=== PATIENT | female | born 1960 | race Caucasian/White ===

== ENCOUNTER → 2017-09-14 | Outpatient (CLI) | payer BC, SELFPAY | PROVIDERS: Visit Provider Internal Medicine Adolescent Medicine | DX: E78.5 Hyperlipidemia, unspecified (principal); E55.9 Vitamin D deficiency, unspecified; E03.9 Hypothyroidism, unspecified | CPT/HCPCS: 36415; 80053; 80061; 82306; 84443; 85025 ==

== ENCOUNTER → 2018-02-25 17:12 | Outpatient (CLI) | payer BC, SELFPAY ==
--- NOTE | 2018-02-25 17:28 | XR_ITS ---
XR ankle wt bearing RT min 3V HISTORY: ITS.REASON: pain ORDERING PHYSICIAN: Zakiya Duke DPM PATIENT AGE: 57 years Comparison: None FINDINGS: No fracture or dislocation. No lytic or blastic change. There is normal mineralization.. The joint spaces are well-preserved. No significant degenerative/arthritic changes. No erosive changes evident. IMPRESSION: Negative ankle, no acute finding
--- NOTE | 2018-02-25 17:28 | XR_ITS ---
XR ankle wt bearing LT min 3V HISTORY: ITS.REASON: pain ORDERING PHYSICIAN: Zakyia Duke DPM PATIENT AGE: 57 years Comparison: None FINDINGS: There is cortical thickening of the distal shaft of the tibia with mild anterior angulation of the distal tibia consistent with an old fracture. There are mild hypertrophic changes at the talus at the tip of the medial malleolus. No lytic or blastic change. No acute fracture. IMPRESSION: Old distal tibia fracture with mild degenerative change of the ankle
--- NOTE | 2018-02-25 17:28 | XR_ITS ---
XR foot wt bearing LT 3V HISTORY: ITS.REASON: pain ORDERING PHYSICIAN: Zakiya Duke DPM PATIENT AGE: 57 years COMPARISON: None FINDINGS: No fracture or dislocation. No lytic or blastic change. There is normal mineralization.. The joint spaces are well-preserved. No significant degenerative/arthritic changes. No erosive changes evident. Small Achilles enthesophyte nonspecific IMPRESSION: Negative left foot
--- NOTE | 2018-02-25 17:28 | XR_ITS ---
XR foot wt bearing RT 3V HISTORY: ITS.REASON: Pain ORDERING PHYSICIAN: Zakiya Duke DPM PATIENT AGE: 57 years COMPARISON: None FINDINGS: No fracture or dislocation. No lytic or blastic change. There is normal mineralization.. The joint spaces are well-preserved. No significant degenerative/arthritic changes. No erosive changes evident. There is a small calcaneal spur and small enthesophyte at the Achilles insertion IMPRESSION: Small calcaneal spur small Achilles enthesophyte otherwise negative right foot
== END ==
PROVIDERS: PCP Internal Medicine Adolescent Medicine; Visit Provider Podiatrist
DX: M79.671 Pain in right foot (principal); M79.672 Pain in left foot
CPT/HCPCS: 73610; 73630

== ENCOUNTER → 2018-09-03 13:31 | Outpatient (CLI) | payer BC, SELFPAY ==
[2018-09-03 13:55] LABS: Blood Urea Nitrogen 18 mg/dL (7-18); Creatinine,Serum 1.03 mg/dL (0.55-1.02); Estimated Glomerular Filt Rate 55 ml/min (>60); GFR (African American) 66 ML/MIN (>60)
--- NOTE | 2018-09-03 14:18 | MR_ITS ---
MR ankle LT wo/w con CLINICAL INDICATION: Left ankle pain posteriorly especially when walking, Achilles tendinitis ITS.REASON: achilles tendonitis, surgical planning ORDERING PHYSICIAN: Zakiya Duke DPM PATIENT AGE: 58 years Comparison: 02/25/2018 TECHNIQUE: Multiplanar multiecho sequences are performed without and with contrast FINDINGS: The Achilles tendon is slightly thickened distally with slight increased T2 signal in the distal aspect of the tendon. There is increased T1 and T2 signal distally consistent with tendinopathy/tendinosis. A focal tear is not identified. Hyperostosis is present involving the posterior superior aspect of the calcaneus consistent with a high: Deformity. There is a small amount of fluid along the distal aspect of the Achilles tendon at its junction with the superior aspect of the calcaneus. There is also small amount of fluid posterior at the tibiotalar junction. There is also small amount of bone marrow edema within the posterior aspect of the calcaneus at the Achilles insertion Anterior posterior tibiofibular ligaments are unremarkable. The anterior talofibular ligament is somewhat smaller than expected and may be due to old injury. The extensor tendons and flexor tendons have an unremarkable appearance. No bone marrow edema evident within the tarsal bones of the ankle. The talar dome is unremarkable. Deltoid ligament has an unremarkable appearance. IMPRESSION: Achilles tendinopathy/tendinosis along with a Meek deformity with a small amount fluid within Kager's fat pad consistent with retrocalcaneal bursitis. Small amount of bone marrow edema within the posterior aspect of the calcaneus. No definite Achilles tendon tear. No other significant anomalies.
== END ==
PROVIDERS: Visit Provider Podiatrist
DX: M76.62 Achilles tendinitis, left leg (principal); M92.61 Juvenile osteochondrosis of tarsus, right ankle; M92.62 Juvenile osteochondrosis of tarsus, left ankle
CPT/HCPCS: 36415; 73223; 73723; 82565; 84520; A9576

== ENCOUNTER → 2018-09-19 16:00 | Outpatient (CLI) | payer BC, SELFPAY ==
--- NOTE | 2018-09-19 16:14 | XR_ITS ---
XR chest 2V HISTORY: ITS.REASON: HTN,COPD ORDERING PHYSICIAN: Zakiya Duke DPM PATIENT AGE: 58 years COMPARISON: PA and lateral chest 07/28/2015 FINDINGS: The lung hua are well expanded and appear clear of infiltrate. There is mild generalized cardio megaly and there has been slight interval increase in cardiac size since the previous chest film in 2015. There are calcified left hilar nodes. There is no pleural fluid. IMPRESSION: Mild generalized cardio megaly, no acute chest pathology noted
[2018-09-19 16:47] LABS: Basophils % 0.3 % (0.1-2.0); Eosinophils # 0.4 K/mm3 (0.0-0.4); Hemoglobin 12.1 g/dL (12.2-16.2); Lymphocytes # 1.2 K/mm3 (0.7-4.5); Lymphocytes % 13.2 % (10-50); Mean Corpuscular HGB Conc 31.9 g/dL (31.8-35.4); Mean Corpuscular Hemoglobin 25.8 pg (27.0-31.2); Mean Corpuscular Volume 80.9 fl (81-99); Mean Platelet Volume 9.2 fl (7.4-10.4); Monocytes # 0.3 K/mm3 (0.1-1.0); Monocytes % 3.8 % (1.7-9.3); Neutrophils % 78.7 % (37.0-80.0); Platelet Count 192 K/mm3 (142-424); Red Cell Distribution Width 14.7 % (11.5-17.5); White Blood Count 8.9 K/mm3 (4.8-10.8)
[2018-09-19 17:32] LABS: Alanine Aminotransferase 30 U/L (12-78); Albumin Level 4.1 gm/dL (3.4-5.0); Albumin/Globulin Ratio 1.5 (1.1-1.8); Alkaline Phosphatase 84 U/L (46-116); Anion Gap 13.5 mEq/L (5-15); Aspartate Amino Transferase 15 U/L (15-37); Bilirubin,Total 0.3 mg/dL (0.2-1.0); Blood Urea Nitrogen 19 mg/dL (7-18); Calcium 9.4 mg/dL (8.5-10.1); Carbon Dioxide 29 mmol/L (21.0-32.0); Chloride 104 mmol/L (98-107); Creatinine,Serum 0.83 mg/dL (0.55-1.02); Estimated Glomerular Filt Rate 70 ml/min (>60); GFR (African American) 85 ML/MIN (>60); Globulin 2.7 gm/dl (1.3-3.2); Glucose 88 mg/dL (74-106); Potassium 4.5 mmoL/L (3.5-5.1); Sodium 142 mmol/L (136-145); Total Protein,Serum 6.8 gm/dL (6.4-8.2)
[2018-09-21 10:57] LABS: Vitamin D 25 Hydroxy 43.7 ng/mL (30.0-100.0)
== END ==
PROVIDERS: Visit Provider Podiatrist
DX: Z01.818 Encounter for other preprocedural examination (principal); M92.61 Juvenile osteochondrosis of tarsus, right ankle; M92.62 Juvenile osteochondrosis of tarsus, left ankle; M76.62 Achilles tendinitis, left leg; M76.61 Achilles tendinitis, right leg
CPT/HCPCS: 36415; 71046; 80053; 82652; 85025; 93005

== ENCOUNTER → 2018-10-24 15:43 | Outpatient (CLI) | payer BC, SELFPAY ==
--- NOTE | 2018-10-24 15:48 | XR_ITS ---
XR foot wt bearing LT 3V HISTORY: Follow-up surgery ITS.REASON: post-op ORDERING PHYSICIAN: Zakiya Duke DPM PATIENT AGE: 58 years COMPARISON: 10/11/2018 FINDINGS: Posterior splint remains in place. Status post osteotomy of the calcaneus. No bony erosive process. No fracture or dislocation. IMPRESSION: No change status post calcaneal osteotomy
== END ==
PROVIDERS: PCP Internal Medicine Adolescent Medicine; Visit Provider Podiatrist
DX: Z98.890 Other specified postprocedural states (principal)
CPT/HCPCS: 73630

== ENCOUNTER 2018-11-25 13:47 | Outpatient (RCR) | payer BC, SELFPAY ==
--- NOTE | 2018-11-25 14:55 | HMH.PTOPEV ---
PT Outpatient Evaluation Rehab PT Outpatient Evaluation Start: 11/25/18 13:54 Freq: Status: Active Protocol: Document 11/25/18 14:36 PHORALANA (Rec: 11/25/18 14:51 PHORNE [id number]) Electronically Signed By Harry Valero, PT 11/25/18 14:36 Outpatient Therapy Subjective History Subjective History Pt is a 58 yowf s/p left Giovanni's tendon and calcaneous surgery on 10/11/18. Pt reports staying in a boot since then and reports her WB status as partial WB. Pt states pain is 0/10 now and 4/ 10 at worst along the incision . Pt reports not moving foot since surgery. Pt reports the heel does not fit down into the boot. Pt ambulates with knee scooter. Pt reports having COPD, HTN, and denies any other comorbidities. Chief Complaint Pain Stiff Symptom Type Ache Sharp Symptoms Relieved By Rest/Positioning Symptoms Aggravated By Sitting Standing Physical Activity Twisting Walking Prior Functional Limitations Standing Sitting Squatting Recreation Activity Walking Stairs Balance Current Functional Limitations Housework Standing Sitting Squatting Recreation Activity Walking Stairs Balance Symptom Description Intermittent Level of pain today (0-10) 0 Pain scale - at its best (0-10) 0 Pain scale - at its worst (0-10) 4 Ankle/Foot Eval Palpation Tenderness left Ankle/Foot Palpation Findings Tenderness Ankle/Foot Palpation Overall Comment lateral malleolus and incision ATF TTP positive PTF TTP negative CF TTP negative Deltoid ligament TTP negative ROM Ankle/Foot Dorsiflexion w/Knee Flexed -10 Active Range of Motion (degrees) Ankle/Foot Plantar Flexion Active Range 30 of Motion (degrees)
== END 2018-11-25 13:55 | disposition home or self-care (01) ==
LOC: PT 13:47
PROVIDERS: Visit Provider Podiatrist
DX: Z98.890 Other specified postprocedural states (principal)
CPT/HCPCS: 97163

== ENCOUNTER → 2018-12-09 12:01 | Outpatient (CLI) | payer BC, SELFPAY ==
[2018-12-09 13:07] LABS: Basophils % 0.5 % (0.1-2.0); Eosinophils # 0.4 K/mm3 (0.0-0.4); Eosinophils % 5.1 % (0.1-12.0); Hematocrit 36.9 % (37.0-47.0); Hemoglobin 12.2 g/dL (12.2-16.2); Lymphocytes # 1.3 K/mm3 (0.7-4.5); Lymphocytes % 18.4 % (10-50); Mean Corpuscular Hemoglobin 27.3 pg (27.0-31.2); Mean Corpuscular Volume 82.5 fl (81-99); Mean Platelet Volume 10.1 fl (7.4-10.4); Monocytes # 0.3 K/mm3 (0.1-1.0); Monocytes % 3.6 % (1.7-9.3); Neutrophils # 5.2 K/mm3 (1.8-7.8); Neutrophils % 72.4 % (37.0-80.0); Platelet Count 165 K/mm3 (142-424); Red Blood Count 4.47 M/mm3 (4.20-5.40); Red Cell Distribution Width 15.1 % (11.5-17.5); White Blood Count 7.1 K/mm3 (4.8-10.8)
[2018-12-09 13:10] LABS: Alanine Aminotransferase 22 U/L (12-78); Albumin Level 4.1 gm/dL (3.4-5.0); Albumin/Globulin Ratio 1.5 (1.1-1.8); Alkaline Phosphatase 70 U/L (46-116); Anion Gap 14.8 mEq/L (5-15); Aspartate Amino Transferase 12 U/L (15-37); Bilirubin,Total 0.2 mg/dL (0.2-1.0); Blood Urea Nitrogen 28 mg/dL (7-18); Calcium 9.2 mg/dL (8.5-10.1); Carbon Dioxide 26 mmol/L (21.0-32.0); Chloride 108 mmol/L (98-107); Chol/HDL Ratio 3.6 (1-3.5); Cholesterol 134 mg/dL (140-200); Estimated Glomerular Filt Rate 42 ml/min (>60); GFR (African American) 51 ML/MIN (>60); Globulin 2.7 gm/dl (1.3-3.2); Glucose 92 mg/dL (74-106); HDL Cholesterol 37 mg/dL (29-89); LDL Cholesterol 75 mg/dL (0-130); Potassium 4.8 mmoL/L (3.5-5.1); Sodium 144 mmol/L (136-145); Thyroid Stimulating Hormone 0.41 uIU/ml (0.358-3.740); Total Protein,Serum 6.8 gm/dL (6.4-8.2); Triglycerides 109 mg/dL (30-200); VLDL Cholesterol 22 mg/dL (0-40)
== END ==
PROVIDERS: Visit Provider Internal Medicine Adolescent Medicine
DX: E78.5 Hyperlipidemia, unspecified (principal); E03.9 Hypothyroidism, unspecified; I10 Essential (primary) hypertension
CPT/HCPCS: 36415; 80053; 80061; 84443; 85025

== ENCOUNTER 2019-02-25 15:30 | Outpatient (RCR) | payer BC, SELFPAY ==
--- NOTE | 2019-01-01 08:47 | HMH.PTOPEV ---
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 Pt reports incision opened up in early November, and fully closed ~1 week ago, therefore normal skilled P.T. was put on hold. Pt reports 25-50% PWB w /L cam walker and RW, next followup 01/23/19. Pt reports some lingering L heel pain w/ wt. bearing, swelling, and weakness. Chief Complaint Pain Stiff Paresthesia Weakness Symptom Type Ache Throb Dull Symptoms Relieved By Rest/Positioning Ice Symptoms Aggravated By Standing Walking Prior Functional Limitations Standing Walking Current Functional Limitations Housework Standing Walking Stairs Symptom Description Constant but Variable Level of pain today (0-10) 3 Pain scale - at its best (0-10) 2 Pain scale - at its worst (0-10) 6 Ankle/Foot Eval Palpation Tenderness left Ankle/Foot Palpation Findings Tenderness Ankle/Foot Palpation Overall Comment 2/4 ACHILLES INSERTION, SX. INCISION ROM Ankle/Foot Dorsiflexion w/Knee Extended 0-10 Active Range Motion (degrees) Ankle/Foot Plantar Flexion Active Range 0-35 of Motion (degrees) Ankle/Foot Eversion Active Range of 0-10 Motion (degrees) Ankle/Foot Inversion Active Range of 0-28 Motion (degrees) Ankle/Foot ROM Limitations Soft Tissue Tightness MMT Ankle Dorsiflexion Strength Grade 4 Good Ankle Plantarflexion Strength Grade 4 Good Foot Eversion Strength Grade 4 Good Foot Inversion Strength Grade 4 Good Outpatient Therapy Assessment Impairments Problems/Impairmments Palpation Tenderness Impaired Range of Motion Impaired Strength
--- NOTE | 2019-02-25 16:38 | HMH.RHREAS ---
Rehab Reassessment Rehab OP Re-assessment Start: 02/25/19 15:35 Freq: Status: Active Protocol: Document 02/25/19 15:43 [email or web address] (Rec: 02/25/19 15:49 ORAMARIBELJIN [id number]) Electronically Signed By Josh Streeter, PT 02/25/19 15:43 Rehab Re-assessment Subjective Subjective PT REPORTS 0-2/10 L ANKLE PAIN ON VAS, AND FEELS 80-85% BETTER OVERALL SINCE I EVAL Objective Objective Notes AROM: R ANKLE DF 0-15, PF 0-35 , INV 0-40, EVR 0-10 MMT: R ANKLE DF 4+/5, PF 4+/5, INV 4+/5, EVR 4+/5 TTP: ACHILLES 1/4, ATF 1/4 FIG 8: L 55 CM, CIRCUM. TALOCRURAL 26CM Assessment Progress Assessment Progressing as Expected Assessment Notes PT W/SIGNIFICANT IMPROVEMENTS W/ROM, STRENGTH, TTP, AND SWELLING Patient goals met STG'S 05/01 LTG'S 02/01 Goals Not Met LTG'S 03/04 Plan Plan PT TO CONT. W/SKILLED P.T. TO MAKE FURTHER IMPROVEMENTS W/ ROM, STRENGTH, AND TTP TO ALLOW FOR OPTIMAL FUNCTION Frequency of Therapy 1-2X/WK Duration of therapy 2-4 WKS Time and Billing Re-Eval Time 15 Re-Eval Billing Units 1 PHYSICIAN CERTIFICATION: I certify the specified therapy services for Prabha Ocasio are required, authorized, and reviewed every 30 days.
== END 2019-02-25 15:35 | disposition home or self-care (01) ==
LOC: PT 15:30
PROVIDERS: Visit Provider Podiatrist
DX: Z98.890 Other specified postprocedural states (principal); M79.672 Pain in left foot
CPT/HCPCS: 97010; 97014; 97016; 97035; 97110; 97112; 97140; 97163; 97164; G0283

== ENCOUNTER → 2019-07-03 10:59 | Outpatient (CLI) | payer BC, SELFPAY ==
[2019-07-03 11:20] LABS: Blood Urea Nitrogen 14 mg/dL (7-18); Creatinine,Serum 0.81 mg/dL (0.55-1.02); Estimated Glomerular Filt Rate 72 ml/min (>60); GFR (African American) 87 ML/MIN (>60)
--- NOTE | 2019-07-03 13:41 | MR_ITS ---
PROCEDURE: MR ANKLE RT WO/W CON CLINICAL INDICATION: achilles tendon pain Post calcaneal bursitis, right Achilles tendinitis/bursitis/Meek deformity COMPARISON: [id number] XR foot wt bearing RT 3V from 02/25/2018 [id number] XR ankle wt bearing RT min 3V from 02/25/2018 [id number] MR ankle LT wo/w con from 09/03/2018 TECHNIQUE: Routine multiplanar multi echo sequences are performed without and with gadolinium enhancement. FINDINGS: There appears to be some discontinuity of the anterior tibiofibular ligament medially on the STIR images but not on the axial images possibly related to slice orientation artifact. Posterior tibiofibular, anterior talofibular and posterior talofibular ligaments and deltoid ligament has an unremarkable appearance. The peroneal, posterior tibial, flexor tendons, and extensor tendons have an unremarkable appearance.. There is mild amount of edema within the soft tissues about the ankle both medially and laterally. No fracture or dislocation. The talar dome has an unremarkable appearance. The Achilles tendon is thickened distally. A complete tear is not identified. There is does appear to be some discontinuity of the distal fibers medially. This however could be due to focal inflammation instead of a tear. There is a small Meek deformity. Increased T2 signal is present anterior to the Achilles tendon and just superior to the calcaneus. Small amount of fluid is present in the posterior talocalcaneal recess. There is a small amount of bone marrow edema within the calcaneus at the insertion at of the Achilles tendon. IMPRESSION: Retrocalcaneal bursitis with Achilles tendinitis. There is a Meek deformity and a small amount of fluid anterior to the insertion of the calcaneus. There is some discontinuity of low signal intensity along the medial fibers of the Achilles tendon at the insertion on the calcaneus. This could be due to either severe inflammatory change or a minimal tear. A full-thickness tear of the Achilles tendon is not present. Dictated by: Winston Reynolds MD 07/05/2019 07:03 Electronically signed by Winston Reynolds MD in [place] 07/09/2019 06:34
== END ==
PROVIDERS: PCP Internal Medicine Adolescent Medicine; Visit Provider Podiatrist
DX: M76.61 Achilles tendinitis, right leg (principal); M77.50 Other enthesopathy of unspecified foot and ankle; M92.61 Juvenile osteochondrosis of tarsus, right ankle
CPT/HCPCS: 36415; 73723; 82565; 84520; A9576

== ENCOUNTER → 2019-08-05 15:54 | Outpatient (POV) | payer BC, SELFPAY | PROVIDERS: Visit Provider Dermatology | DX: Z00.00 Encounter for general adult medical examination without abnormal findings (principal) ==

== ENCOUNTER → 2019-08-11 16:50 | Outpatient (CLI) | payer BC, SELFPAY ==
--- NOTE | 2019-08-11 | XR_ITS ---
PROCEDURE: XR CHEST 2V CLINICAL HISTORY: Former smoker, hypertension, COPD COMPARISON: CXR CHEST(2 VIEWS-NOT PORTABLE) from 07/28/[address] [facility] [address] CHEST W/O CONTRAST from 01/21/2016 CXR2V XR chest 2V from 09/19/2018 FINDINGS: The cardiomediastinal silhouette and pulmonary vascularity are within normal limits. Changes of COPD. Calcified granuloma is present in the left upper lobe with scarring in the left perihilar region. No acute bony abnormalities. IMPRESSION: COPD with scarring, no change with no acute finding Dictated by: Winston Reynolds MD 08/11/2019 18:17 Electronically signed by Winston Reynolds MD in [place] 08/12/2019 11:31
[2019-08-11 17:20] LABS: Basophils % 0.5 % (0.1-2.0); Eosinophils # 0.4 K/mm3 (0.0-0.4); Eosinophils % 4.2 % (0.1-12.0); Hematocrit 38.4 % (37.0-47.0); Hemoglobin 12.3 g/dL (12.2-16.2); Lymphocytes # 1.4 K/mm3 (0.7-4.5); Lymphocytes % 15.2 % (10-50); Mean Corpuscular HGB Conc 32.1 g/dL (31.8-35.4); Mean Corpuscular Hemoglobin 26.1 pg (27.0-31.2); Mean Corpuscular Volume 81.2 fl (81-99); Mean Platelet Volume 10.3 fl (7.4-10.4); Monocytes # 0.4 K/mm3 (0.1-1.0); Monocytes % 4.6 % (1.7-9.3); Neutrophils # 6.9 K/mm3 (1.8-7.8); Neutrophils % 75.5 % (37.0-80.0); Platelet Count 191 K/mm3 (142-424); Red Blood Count 4.73 M/mm3 (4.20-5.40); Red Cell Distribution Width 14.8 % (11.5-17.5); White Blood Count 9.1 K/mm3 (4.8-10.8)
--- NOTE | 2019-08-11 17:30 | ECG_ITS ---
APPROVED REPORT Exam: Resting ECG HR:69 bpm ECG Measurements Heart Rate 69 AXES SC 146 P 51 QRSd 100 QRS 10 QT 426 T 42 QTc 456 <Conclusion> Normal sinus rhythm Possible Left atrial enlargement Incomplete RBBB Borderline ECG Electronically signed by : Shahram Barrios, 08/12/2019 09:21:15
[2019-08-11 19:20] LABS: Anion Gap 11.7 mEq/L (5-15); Blood Urea Nitrogen 17 mg/dL (7-18); Carbon Dioxide 30 mmol/L (21.0-32.0); Chloride 105 mmol/L (98-107); Creatinine,Serum 0.79 mg/dL (0.55-1.02); Estimated Glomerular Filt Rate 74 ml/min (>60); GFR (African American) 90 ML/MIN (>60); Glucose 82 mg/dL (74-106); Potassium 3.7 mmoL/L (3.5-5.1); Sodium 143 mmol/L (136-145)
[2019-08-13 10:23] LABS: Vitamin D 25 Hydroxy 48.3 ng/mL (30.0-100.0)
== END ==
PROVIDERS: PCP Internal Medicine Adolescent Medicine; Visit Provider Podiatrist
DX: Z01.818 Encounter for other preprocedural examination (principal); M77.51 Other enthesopathy of right foot and ankle
CPT/HCPCS: 36415; 71046; 80048; 82652; 85025; 93005

== ENCOUNTER → 2019-10-21 09:21 | Outpatient (CLI) | payer BC, SELFPAY ==
--- NOTE | 2019-10-21 09:25 | XR_ITS ---
PROCEDURE: XR CALCANEUS RT MIN 2V CLINICAL INDICATION: post-op COMPARISON: MR ANKLE RT WO/W CON from 07/03/2019 XR FOOT RT MIN 3V from 08/29/2019 XR CALCANEUS RT MIN 2V from 08/29/2019 XR FOOT WT BEARING RT 3V from 10/21/2019 FINDINGS: Status post osteotomy of the posterior superior aspect of the calcaneus as previously described not significantly changed. Remains good alignment. There is some minimal soft tissue calcification posterior to the talus in the pre Achilles region. Foot has an otherwise unremarkable appearance. The joint spaces are well-preserved. No significant degenerative/arthritic changes. No erosive changes evident. Other findings:None. IMPRESSION: Stable postsurgical changes of the calcaneus Dictated by: Winston Reynolds MD 10/21/2019 15:00 Electronically signed by Winston Reynolds MD in [place] 10/21/2019 15:00
== END ==
PROVIDERS: PCP Internal Medicine Adolescent Medicine; Visit Provider Nurse Practitioner
DX: Z98.890 Other specified postprocedural states (principal); M76.61 Achilles tendinitis, right leg; M77.51 Other enthesopathy of right foot and ankle; R60.9 Edema, unspecified
CPT/HCPCS: 73630; 73650

== ENCOUNTER 2019-10-28 11:14 | Outpatient (RCR) | payer BC, SELFPAY ==
--- NOTE | 2019-10-28 11:44 | HMH.PTOPEV ---
PT Outpatient Evaluation Rehab PT Outpatient Evaluation Start: 10/28/19 11:36 Freq: Status: Active Protocol: Document 10/28/19 11:36 JONO (Rec: 10/28/19 11:44 JONO [id number]) Electronically Signed By Josh Streeter, PT 10/28/19 11:36 Outpatient Therapy Subjective History Subjective History Pt presents s/p R Meek's deformity sx. on 08/29/19. Pt reports sx. incision has ' opened up, and I go back to the doc for that, otherwise it feels better than the first one'. Pt reports previous procedure on L on . Pt reports some R foot swelling, stiffness, and pain, 'but not bad, sorta what I expected'. Chief Complaint Pain,Stiff,Swelling,Weakness Symptom Type Ache,Dull Symptoms Relieved By Rest/Positioning,Ice Symptoms Aggravated By Standing,Walking Prior Functional Limitations Standing,Walking Current Functional Limitations Standing,Walking,Stairs Symptom Description Constant but Variable Level of pain today (0-10) 3 Pain scale - at its best (0-10) 2 Pain scale - at its worst (0-10) 6 Ankle/Foot Eval Gait Observation General Gait Pattern Observation Antalgic Gait Assistive Device Ambulation Assistive Device Rolling Walker Palpation Tenderness right Ankle/Foot Palpation Findings Tenderness Ankle/Foot Palpation Overall Comment 1-2/4 achilles insertion ROM Ankle/Foot Dorsiflexion w/Knee Extended 0-15 Active Range Motion (degrees) Ankle/Foot Plantar Flexion Active Range 0-35 of Motion (degrees) Ankle/Foot Eversion Active Range of 0-22 Motion (degrees) Ankle/Foot Inversion Active Range of 0-28 Motion (degrees) Ankle/Foot ROM Limitations Soft Tissue Tightness MMT Ankle Dorsiflexion Strength Grade 4 Good Ankle Plantarflexion Strength Grade 4 Good Foot Eversion Strength Grade 4- Good- Foot Inversion Strength Grade 4- Good- Outpatient Therapy Assessment Impairments Problems/Impairmments Palpation Tenderness,Impaired Range of Motion,Impaired Strength,Impaired Gait Pattern ,Impaired Walking,Impaired Standing,Impaired Stair Climbing,Impaired Work Activities,Subjective C/O Pain ,Impaired Self Care/Self Management Prognosis Rehab Potential [facility]
== END 2019-10-28 11:20 | disposition home or self-care (01) ==
LOC: PT 11:14
PROVIDERS: PCP Internal Medicine Adolescent Medicine; Visit Provider Podiatrist
DX: Z98.890 Other specified postprocedural states (principal); M77.50 Other enthesopathy of unspecified foot and ankle; M76.61 Achilles tendinitis, right leg
CPT/HCPCS: 97163

== ENCOUNTER → 2020-02-23 09:51 | Outpatient (CLI) | payer BC, SELFPAY ==
[2020-02-23 10:49] LABS: Basophils % 0.5 % (0.1-2.0); Eosinophils # 0.3 K/mm3 (0.0-0.4); Hematocrit 34.5 % (37.0-47.0); Hemoglobin 11.4 g/dL (12.2-16.2); Lymphocytes # 0.9 K/mm3 (0.7-4.5); Lymphocytes % 11.3 % (10-50); Mean Corpuscular HGB Conc 33.2 g/dL (31.8-35.4); Mean Corpuscular Hemoglobin 27.1 pg (27.0-31.2); Mean Corpuscular Volume 81.6 fl (81-99); Mean Platelet Volume 9.2 fl (7.4-10.4); Monocytes # 0.3 K/mm3 (0.1-1.0); Monocytes % 3.1 % (1.7-9.3); Neutrophils # 6.7 K/mm3 (1.8-7.8); Neutrophils % 82.1 % (37.0-80.0); Platelet Count 179 K/mm3 (142-424); Red Blood Count 4.22 M/mm3 (4.20-5.40); Red Cell Distribution Width 15.9 % (11.5-17.5); White Blood Count 8.2 K/mm3 (4.8-10.8)
[2020-02-23 11:46] LABS: Alanine Aminotransferase 20 U/L (12-78); Albumin Level 4.4 g/dl (3.5-5.0); Albumin/Globulin Ratio 1.8 (1.1-1.8); Alkaline Phosphatase 83 U/L (38-126); Anion Gap 9.6 mEq/L (5-15); Aspartate Amino Transferase 22 U/L (14-36); Bilirubin,Total 0.4 mg/dl (0.2-1.3); Blood Urea Nitrogen 18 mg/dl (7-17); Calcium 9.6 mg/dl (8.4-10.2); Carbon Dioxide 33 mmol/L (22.0-30.0); Chloride 102 mmol/L (98-107); Chol/HDL Ratio 2.6 (1-3.5); Cholesterol 112 mg/dl (140-200); Estimated Glomerular Filt Rate 64 ml/min (>60); GFR (African American) 77 ML/MIN (>60); Globulin 2.5 g/dL (1.3-3.2); Glucose 98 mg/dl (74-100); HDL Cholesterol 43 mg/dl (40-60); Potassium 3.6 mmoL/L (3.5-5.1); Sodium 141 mmol/L (136-145); Total Protein,Serum 6.9 g/dl (6.3-8.2); Triglycerides 106 mg/dl (30-150); VLDL Cholesterol 21 mg/dL (0-40)
[2020-02-23 11:57] LABS: Direct LDL Cholesterol 68.12 mg/dL (100-129)
[2020-02-23 12:15] LABS: Thyroid Stimulating Hormone 0.31 uIU/mL (0.465-4.68)
[2020-02-24 09:52] LABS: Vitamin D 25 Hydroxy 76.3 ng/mL (30.0-100.0)
== END ==
PROVIDERS: Visit Provider Internal Medicine Adolescent Medicine
DX: E78.5 Hyperlipidemia, unspecified (principal); E03.9 Hypothyroidism, unspecified; E55.9 Vitamin D deficiency, unspecified
CPT/HCPCS: 36415; 80053; 80061; 82652; 84443; 85025

== ENCOUNTER → 2020-03-29 09:03 | Outpatient (CLI) | payer BC, SELFPAY ==
--- NOTE | 2020-03-29 | MM_ITS ---
PROCEDURE: MM DIG SCREENING MAMM BI W/CAD DIGITAL BREAST TOMOSYNTHESIS INCLUDED Patient Age:59Y CLINICAL INDICATION: SCREENING no hormones, no new complaints. noncontributory family history COMPARISON: DMDXUAVL DIG MAMM-DX UNI ADD VIEWS-LT from 03/26/2013 DMDXUL DIG MAMM-DX UNI-LT from 01/23/2014 DMSB DIG MAMM-SCREEN FRANCISCO from 01/21/2016 DMDXUL DIG MAMM-DX UNI-LT from 02/04/2016 DMSB DIG MAMM-SCREEN FRANCISCO W/CAD from 03/22/2017 TECHNIQUE: Standard CC and MLO images were obtained. R2 CAD reviewed. Bilateral digital breast tomosynthesis included. ADDITIONAL AXILLARY CC VIEWS BOTH BREAST findings: moderate breast density no new dominant or suspicious mass either breast. NO SUSPICIOUS CALCIFICATIONS right breast.: Stable vague ovoid density the deep upper-outer quadrant right breast is unchanged since studies dating back to 2015 Left breast: stable THE. No change since last year's study IMPRESSION: STABLE BILATERAL MAMMOGRAM. NO SIGNIFICANT NEW AREAS OF CONCERN BILATERAL FOLLOW-UP 1 YEAR RECOMMENDED BI-RAD Category: 2 Benign Finding(s) FOLLOW-UP: 1YR 1 Year Follow-up (A letter has been sent to the patient regarding results of the study.) Dictated by: Narinder Natarajan MD 04/02/2020 14:13 Electronically signed by Narinder Natarajan MD in [place] 04/02/2020 14:13
== END ==
PROVIDERS: PCP Internal Medicine Adolescent Medicine; Visit Provider Internal Medicine Adolescent Medicine
DX: Z12.31 Encounter for screening mammogram for malignant neoplasm of breast (principal)
CPT/HCPCS: 77063; 77067

== ENCOUNTER → 2021-02-22 07:49 | Outpatient (CLI) | payer BC, SELFPAY ==
[2021-02-22 09:57] LABS: Basophils % 0.4 % (0.1-2.0); Eosinophils # 0.4 K/mm3 (0.0-0.4); Eosinophils % 3.7 % (0.1-12.0); Hematocrit 36.8 % (37.0-47.0); Hemoglobin 12.3 g/dL (12.2-16.2); Lymphocytes # 1.2 K/mm3 (0.7-4.5); Mean Corpuscular HGB Conc 33.4 g/dL (31.8-35.4); Mean Corpuscular Hemoglobin 25.6 pg (27.0-31.2); Mean Corpuscular Volume 76.9 fl (81-99); Mean Platelet Volume 9.6 fl (7.4-10.4); Monocytes # 0.4 K/mm3 (0.1-1.0); Monocytes % 4.1 % (1.7-9.3); Neutrophils # 8.3 K/mm3 (1.8-7.8); Neutrophils % 79.9 % (37.0-80.0); Platelet Count 190 K/mm3 (142-424); Red Blood Count 4.79 M/mm3 (4.20-5.40); Red Cell Distribution Width 15.8 % (11.5-17.5); White Blood Count 10.4 K/mm3 (4.8-10.8)
[2021-02-22 11:45] LABS: Alanine Aminotransferase 20 U/L (12-78); Albumin Level 4.4 g/dl (3.5-5.0); Albumin/Globulin Ratio 1.8 (1.1-1.8); Alkaline Phosphatase 90 U/L (38-126); Anion Gap 10.1 mEq/L (5-15); Aspartate Amino Transferase 22 U/L (14-36); Bilirubin,Total 0.6 mg/dl (0.2-1.3); Blood Urea Nitrogen 19 mg/dl (7-17); Calcium 8.8 mg/dl (8.4-10.2); Carbon Dioxide 32 mmol/L (22.0-30.0); Chloride 101 mmol/L (98-107); Chol/HDL Ratio 3.4 (1-3.5); Cholesterol 129 mg/dl (140-200); Estimated Glomerular Filt Rate 56 ml/min (>60); GFR (African American) 68 ML/MIN (>60); Globulin 2.4 g/dL (1.3-3.2); Glucose 106 mg/dl (74-100); HDL Cholesterol 38 mg/dl (40-60); Potassium 3.1 mmoL/L (3.5-5.1); Sodium 140 mmol/L (136-145); Total Protein,Serum 6.8 g/dl (6.3-8.2); Triglycerides 106 mg/dl (30-150); VLDL Cholesterol 21 mg/dL (0-40)
[2021-02-22 11:56] LABS: Direct LDL Cholesterol 65.86 mg/dL (100-129)
[2021-02-22 12:06] LABS: T4 (Thyroxine) 9.7 ug/dl (5.53-11.0); Triiodothryronine (T3) Uptake 31 % (23.5-40.5)
[2021-02-22 12:33] LABS: Vitamin B12 684 pg/mL (239-931)
[2021-02-22 13:14] LABS: Hemoglobin A1C 5.1 % (4.0-6.0)
== END ==
PROVIDERS: PCP Internal Medicine Adolescent Medicine; Visit Provider Internal Medicine Adolescent Medicine
DX: J44.9 Chronic obstructive pulmonary disease, unspecified (principal); E78.5 Hyperlipidemia, unspecified; E03.9 Hypothyroidism, unspecified; E55.9 Vitamin D deficiency, unspecified; Z79.899 Other long term (current) drug therapy
CPT/HCPCS: 36415; 80053; 80061; 82306; 82607; 83036; 84436; 84443; 84479; 85025; 94060; 94726; 94729

== ENCOUNTER → 2021-05-31 10:46 | Outpatient (POV) | payer BC, SELFPAY | PROVIDERS: Visit Provider Dermatology | DX: Z00.00 Encounter for general adult medical examination without abnormal findings (principal) ==

== ENCOUNTER → 2021-07-21 12:54 | Outpatient (CLI) | payer BC, SELFPAY ==
[2021-07-21 14:22] LABS: Chloride 95 mmol/L (98-107); Potassium 3.2 mmoL/L (3.5-5.1); Sodium 140 mmol/L (136-145)
[2021-07-21 14:25] LABS: Anion Gap 14.2 mEq/L (5-15); Blood Urea Nitrogen 14 mg/dl (7-17); Calcium 9.6 mg/dl (8.4-10.2); Carbon Dioxide 34 mmol/L (22.0-30.0); Estimated Glomerular Filt Rate 63 ml/min (>60); GFR (African American) 77 ML/MIN (>60); Glucose 79 mg/dl (74-100)
== END ==
PROVIDERS: Visit Provider Internal Medicine Adolescent Medicine
DX: N30.90 Cystitis, unspecified without hematuria (principal); R82.90 Unspecified abnormal findings in urine; B96.20 Unspecified Escherichia coli [E. coli] as the cause of diseases classified elsewhere
CPT/HCPCS: 36415; 80048; 87086; 87088; 87186

== ENCOUNTER → 2021-08-11 11:56 | Outpatient (CLI) | payer BC, SELFPAY ==
[2021-08-11 14:13] LABS: Chloride 101 mmol/L (98-107); Potassium 4.3 mmoL/L (3.5-5.1); Sodium 141 mmol/L (136-145)
[2021-08-11 14:16] LABS: Anion Gap 13.3 mEq/L (5-15); Blood Urea Nitrogen 18 mg/dl (7-17); Carbon Dioxide 31 mmol/L (22.0-30.0); Estimated Glomerular Filt Rate 50 ml/min (>60); GFR (African American) 61 ML/MIN (>60)
[2021-08-11 14:17] LABS: Calcium 9.5 mg/dl (8.4-10.2); Glucose 81 mg/dl (74-100)
== END ==
PROVIDERS: Visit Provider Internal Medicine Adolescent Medicine
DX: I10 Essential (primary) hypertension (principal)
CPT/HCPCS: 36415; 80048; 82088; 84244

== ENCOUNTER → 2022-08-31 10:49 | Outpatient (CLI) | payer BC, SELFPAY ==
--- NOTE | 2022-08-31 10:53 | MM_ITS ---
PROCEDURE INFORMATION: Exam: MG Bilateral Screening 3D Mammography Exam date and time: 08/31/2022 10:52 AM Age: 62 years old Clinical indication: Screening examination TECHNIQUE: Imaging protocol: Bilateral Screening tomosynthesis and 2D mammography including computer-aided detection (CAD) when performed. COMPARISON: 1. MG MM DIG SCREENING MAMM BI W/CAD 03/29/2020 9:15 AM 2. MG DMSB DIG MAMM-SCREEN FRANCISCO W/CAD 03/22/2017 9:15 AM FINDINGS: MAMMOGRAPHY: Breast composition: There are scattered areas of fibroglandular density. Mass: None. Architectural distortion: None. Calcifications: No suspicious calcifications. Asymmetric density: None. Skin thickening: None. Axillary adenopathy: None. IMPRESSION: No mammographic evidence of malignancy. Annual screening is recommended unless otherwise clinically indicated. ASSESSMENT: BI-RADS Category 1: Negative
== END ==
PROVIDERS: PCP Internal Medicine Adolescent Medicine; Visit Provider Internal Medicine Adolescent Medicine
DX: Z12.31 Encounter for screening mammogram for malignant neoplasm of breast (principal)
CPT/HCPCS: 77063; 77067

== ENCOUNTER 2022-09-14 08:00 | Day surgery (SDC) | payer BC, SELFPAY ==
[2022-09-14 08:23] VITALS: BP 150/64; PULSE 67; RESP 18; TEMP 37.2; O2SAT 96; BMI 43.4
[2022-09-14 09:03] VITALS: O2SAT 96
--- NOTE | 2022-09-14 09:10 | EXP.ANES.CKL ---
[facility] Disclaimer: The information contained in this section may have been updated after the patient was seen, as this information can be updated by other users. Medical History Allergies History of abscess of skin and subcutaneous tissue Hyperlipidemia Hypertension Hypothyroid Surgical History History of hysterectomy Hx of foot surgery Hx of hemorrhoidectomy Family History Other Family history of COPD (chronic obstructive pulmonary disease) Family history of cancer Family history of hypertension Family history of myocardial infarction Family history of stroke Social History Smoking Status: Former smoker pack-years: 10 how long ago did patient quit smokin years alcohol intake: current substance use type: denies use current occupational status: employed Travel in the last 8 weeks: None household members: none housing: house lives independently: Yes marital status: education level: high school current occupation: [employer] current occupational exposures/hazards: No caffeine: Yes special jr needs: No agree to transfusion: No do you feel safe at home: Yes victim of physical abuse: No victim of emotional abuse: No victim of sexual abuse: No would you like helpful sources: No [facility] Anesthesia Checklist Patient Identification Patient Identification: Arm Band and Verbal (Name & ) Structural Data Admitted From: Home Planned Operative Procedure/s: Colonoscopy Verified Documents: Surgical Consent NPO Status Verified Time NPO: 05:00 Additional verifications Anesthesia Reactions: No Hx Blood Transfusions: No Blood Transfusion Reaction: No Airway Assessment C-Spine Mobility Assessed: Yes TMJ Mobility Assessed: Yes Dentition: Good Dentition Neurological Assessment Level of Consciousness: Awake, Alert and Appropriate Anesthesia Plan ASA Class: III Anesthesia Type: MAC
--- NOTE | 2022-09-14 09:20 | HMH.SCOPE ---
Procedure: Date: 09/14/22 Patient Date of :: 1960 Procedure Performed:: Diagnostic colonoscopy Indications:: +Cologuard, history of polyps Performing Provider:: Ese Russell MD Referring Provider:: Fab Quinones Sedation:: Propofol Procedure:: After placing the patient in the left lateral decubitus position, the colonoscopy was gently inserted into the rectum and under direct visualization advanced to the cecum which was identified by transillumination in the right lower quadrant, identification of the ileocecal valve, appendiceal orifice, and cecal strap. Color, texture, mucosa, and anatomy of the colon were carefully examined with the scope. Findings:: Anal canal: normal Rectum: normal Sigmoid colon: normal without polyps or inflammatory changes, scattered diverticulosis Descending colon: normal without polyps or inflammatory changes Splenic flexure: normal Transverse colon: normal without polyps or inflammatory changes Hepatic flexure: normal Ascending colon: normal without polyps or inflammatory changes Cecum: normal Terminal ileum: not visualized Impression: Scattered diverticulosis, otherwise normal colonoscopy Specimens:: None Recommendations:: Repeat examination in about FIVE years or so, sooner if clinically indicated Complications:: None Estimated blood obtained (mL): 0
[2022-09-14 09:21] VITALS: BP 111/57; PULSE 58; RESP 17; O2SAT 93
[2022-09-14 09:31] VITALS: BP 111/66; PULSE 58; RESP 17; O2SAT 95
[2022-09-14 09:41] VITALS: BP 137/97; PULSE 59; RESP 18; O2SAT 97
[2022-09-14 09:51] VITALS: BP 135/88; PULSE 60; RESP 19; O2SAT 96
== END 2022-09-14 10:06 | disposition home or self-care (01) ==
PROVIDERS: PCP Internal Medicine Adolescent Medicine; Visit Provider Internal Medicine Gastroenterology
PROC: 0DJD8ZZ Inspection of Lower Intestinal Tract, Via Natural or Artificial Opening Endoscopic (ICD-10-PCS; CPT 45378; principal; 2022-09-14 09:00)
DX: Z12.11 Encounter for screening for malignant neoplasm of colon (principal); Z86.010 Personal history of colon polyps; K57.90 Diverticulosis of intestine, part unspecified, without perforation or abscess without bleeding; Z79.899 Other long term (current) drug therapy
CPT/HCPCS: 45378

== ENCOUNTER → 2022-10-04 12:24 | Outpatient (CLI) | payer BC, SELFPAY ==
--- NOTE | 2022-10-04 | CA_ITS ---
FINAL REPORT TECHNIQUE: Ultrasound images of the deep venous system were obtained from the left groin to the calf veins. CLINICAL HISTORY: Left anterior knee pain, left lower extremity swelling COMPARISON: None FINDINGS: The deep venous system is normally compressible. Normal flow is identified. IMPRESSION: No evidence of left lower extremity DVT. Reviewed, Interpreted and Dictated by Jace Gonzalez III, MD Transcribed by Latrice Cuadra Authenticated and [facility]
[2022-10-04 13:19] LABS: Hemoglobin A1C 5.3 % (4.0-6.0)
[2022-10-04 14:00] LABS: Alanine Aminotransferase 27 U/L (12-78); Albumin Level 4.7 g/dl (3.5-5.0); Alkaline Phosphatase 84 U/L (38-126); Anion Gap 13.5 mEq/L (5-15); Aspartate Amino Transferase 27 U/L (14-36); Bilirubin,Total 0.5 mg/dl (0.2-1.3); Blood Urea Nitrogen 21 mg/dl (7-17); Calcium 9.9 mg/dl (8.4-10.2); Carbon Dioxide 29 mmol/L (22.0-30.0); Chloride 104 mmol/L (98-107); Chol/HDL Ratio 3.6 (1-3.5); Cholesterol 123 mg/dl (140-200); Estimated Glomerular Filt Rate 41 ml/min (>60); GFR (African American) 50 ML/MIN (>60); Globulin 2.4 g/dL (1.3-3.2); Glucose 88 mg/dl (74-100); HDL Cholesterol 34 mg/dl (40-60); Potassium 4.5 mmoL/L (3.5-5.1); Sodium 142 mmol/L (136-145); Total Protein,Serum 7.1 g/dl (6.3-8.2); Triglycerides 204 mg/dl (30-150); VLDL Cholesterol 41 mg/dL (0-40)
[2022-10-04 14:10] LABS: Direct LDL Cholesterol 52.31 mg/dL (100-129)
[2022-10-04 14:16] LABS: 25-OH Vitamin D, Total 41.8 ng/mL (30-100)
[2022-10-04 14:29] LABS: Thyroid Stimulating Hormone 0.63 uIU/mL (0.465-4.68)
[2022-10-04 15:22] LABS: Basophils # 0.1 K/mm3 (0-0.2); Basophils % 0.8 % (0.1-2.0); Eosinophils # 0.5 K/mm3 (0.0-0.4); Eosinophils % 4.5 % (0.1-12.0); Hematocrit 42.9 % (37.0-47.0); Hemoglobin 13.7 g/dL (12.2-16.2); Lymphocytes # 1.3 K/mm3 (0.7-4.5); Lymphocytes % 12.7 % (10-50); Mean Corpuscular HGB Conc 31.9 g/dL (31.8-35.4); Mean Corpuscular Hemoglobin 26.6 pg (27.0-31.2); Mean Corpuscular Volume 83.5 fl (81-99); Mean Platelet Volume 10.8 fl (7.4-10.4); Monocytes # 0.4 K/mm3 (0.1-1.0); Monocytes % 3.5 % (1.7-9.3); Neutrophils # 8.2 K/mm3 (1.8-7.8); Neutrophils % 78.5 % (37.0-80.0); Platelet Count 232 K/mm3 (142-424); Red Blood Count 5.14 M/mm3 (4.20-5.40); Red Cell Distribution Width 15.3 % (11.5-17.5); White Blood Count 10.4 K/mm3 (4.8-10.8)
== END ==
PROVIDERS: PCP Internal Medicine Adolescent Medicine; Visit Provider Internal Medicine Adolescent Medicine
DX: R60.0 Localized edema (principal); E03.9 Hypothyroidism, unspecified; E78.5 Hyperlipidemia, unspecified; E55.9 Vitamin D deficiency, unspecified; Z86.39 Personal history of other endocrine, nutritional and metabolic disease
CPT/HCPCS: 36415; 80053; 80061; 82306; 83036; 84443; 85025; 93971

== ENCOUNTER 2023-11-28 09:51 | Outpatient (CLI) | payer MEDICARE, SELFPAY ==
--- NOTE | 2023-11-28 09:56 | MM_ITS ---
PROCEDURE INFORMATION: Exam: MG Bilateral Screening 3D Mammography Exam date and time: 11/28/2023 9:44 AM Age: 63 years old Clinical indication: Screening examination. Her sister had breast cancer at age 69. TECHNIQUE: Imaging protocol: Bilateral Screening tomosynthesis and 2D mammography including computer-aided detection (CAD) when performed. COMPARISON: 1. MG MM DIG SCREENING MAMM BI W/CAD 08/31/2022 10:52 AM 2. MG MM DIG SCREENING MAMM BI W/CAD 03/29/2020 9:15 AM 3. MG DMSB DIG MAMM-SCREEN FRANCISCO W/CAD 03/22/2017 9:15 AM 4. MG DMDXUL DIG MAMM-DX UNI-LT 02/04/2016 2:06 PM FINDINGS: MAMMOGRAPHY: Breast composition: There are scattered areas of fibroglandular density. Mass: No suspicious mass. Architectural distortion: None. Calcifications: No suspicious calcifications. Asymmetric density: None. Skin thickening: None. Axillary adenopathy: None. IMPRESSION: No mammographic evidence of malignancy. Annual screening is recommended unless otherwise clinically indicated. ASSESSMENT: BI-RADS Category 1: Negative
== END 2023-11-28 23:59 ==
LOC: RAD 09:52
PROVIDERS: PCP Internal Medicine Adolescent Medicine; Visit Provider Internal Medicine Adolescent Medicine
DX: Z12.31 Encounter for screening mammogram for malignant neoplasm of breast (principal)
CPT/HCPCS: 77063; 77067

== ENCOUNTER 2024-01-01 09:52 | Outpatient (CLI) | payer MEDICARE, SELFPAY ==
--- NOTE | 2024-01-01 10:02 | XR_ITS ---
FINAL REPORT CLINICAL HISTORY: SWELLING OF LEFT KNEE AND PAIN COMPARISON: None FINDINGS: Three views of the left knee reveal no evidence of fracture or dislocation. There is mild lateral subluxation of the tibia in relationship to the distal femur. Moderate degenerative change is present as well as moderate medial compartment narrowing. There is no evidence of joint effusion. No localized soft tissue abnormality is seen. IMPRESSION: Moderate degenerative change, with moderate narrowing of the medial compartment and mild lateral subluxation of the tibia as described above. Reviewed, Interpreted and Dictated by Jace Gonzalez III, MD Transcribed by Delicia Barrett Authenticated and [facility]
== END 2024-01-01 23:59 ==
LOC: RAD 09:53
PROVIDERS: PCP Internal Medicine Adolescent Medicine; Visit Provider Nurse Practitioner Family
DX: M25.562 Pain in left knee (principal); M25.462 Effusion, left knee
CPT/HCPCS: 73562

== ENCOUNTER 2024-12-10 07:59 | Outpatient (CLI) | payer MEDICARE, SELFPAY ==
--- NOTE | 2024-12-10 08:04 | MR_ITS ---
FINAL REPORT TECHNIQUE: Multiplanar MR without contrast CLINICAL HISTORY: RT/LUMBAGO W SCIATICA. RIGHT LEG PAIN. LOW BACK PAIN FINDINGS: Sagittal images show normal vertebral height. There is minimal retrolisthesis of L2 on L3 measuring 2 mm. Alignment is otherwise normal. Marrow signal pattern is unremarkable. Incidental note is made of a lipoma within the deep right gluteal musculature near the iliac wing measuring up to 2.8 cm. T12-L1: Unremarkable. L1-2: Unremarkable L2-3: Mild annular disc bulge with mild bilateral neuroforaminal narrowing. L3-4: Minimal annular disc bulge with mild bilateral neuroforaminal narrowing. L4-5: Mild annular disc bulge with mild facet arthropathy and mild bilateral neuroforaminal narrowing. L5-S1: Mild annular disc bulge with mild facet arthropathy and mild bilateral neuroforaminal narrowing. IMPRESSION: Diffuse degenerative changes, most pronounced at L2-3. Reviewed, Interpreted and Dictated by Harper Javed MD Transcribed by Adrianne Tipton Authenticated and [facility]
== END 2024-12-10 23:59 | disposition home or self-care (01) ==
LOC: RAD 08:00
PROVIDERS: PCP Internal Medicine Adolescent Medicine; Visit Provider Internal Medicine Adolescent Medicine
DX: M54.41 Lumbago with sciatica, right side (principal)
CPT/HCPCS: 72148

== ENCOUNTER → 2025-03-17 20:32 | Outpatient (CLI) | payer MEDICARE, SELFPAY | LOC: SL 20:34 | PROVIDERS: PCP Internal Medicine Adolescent Medicine; Visit Provider Internal Medicine Adolescent Medicine | DX: G47.33 Obstructive sleep apnea (adult) (pediatric) (principal) | CPT/HCPCS: 95811 ==

== ENCOUNTER 2025-03-19 14:43 | Outpatient (CLI) | payer MEDICARE, SELFPAY ==
--- NOTE | 2025-03-19 14:47 | MM_ITS ---
PROCEDURE INFORMATION: Exam: MG Bilateral Screening 3D Mammography Exam date and time: 03/19/2025 2:52 PM Age: 64 years old Clinical indication: Screening examination. Her sister had breast cancer at age 69. TECHNIQUE: Imaging protocol: Bilateral Screening tomosynthesis and 2D mammography including computer-aided detection (CAD) when performed. COMPARISON: 1. MG MM DIG SCREENING MAMM BI W/CAD 11/28/2023 9:44 AM 2. MG MM DIG SCREENING MAMM BI W/CAD 08/31/2022 10:52 AM 3. MG MM DIG SCREENING MAMM BI W/CAD 03/29/2020 9:15 AM 4. MG DMSB DIG MAMM-SCREEN FRANCISCO W/CAD 03/22/2017 9:15 AM FINDINGS: MAMMOGRAPHY: Breast composition: There are scattered areas of fibroglandular density. Mass: No suspicious mass. Architectural distortion: None. Calcifications: No suspicious calcifications. Asymmetric density: None. Skin thickening: None. Axillary adenopathy: None. IMPRESSION: No mammographic evidence of malignancy. Annual screening is recommended unless otherwise clinically indicated. ASSESSMENT: BI-RADS Category 1: Negative.
== END 2025-03-19 23:59 | disposition home or self-care (01) ==
LOC: RAD 14:43
PROVIDERS: PCP Internal Medicine Adolescent Medicine; Visit Provider Internal Medicine Adolescent Medicine
DX: Z12.31 Encounter for screening mammogram for malignant neoplasm of breast (principal); R92.323 Mammographic fibroglandular density, bilateral breasts; Z80.3 Family history of malignant neoplasm of breast
CPT/HCPCS: 77063; 77067

== ENCOUNTER 2025-03-24 09:45 | Outpatient (RCR) | payer MEDICARE, SELFPAY | END 2025-03-24 23:59 | disposition home or self-care (01) | LOC: OT 09:45 | PROVIDERS: Visit Provider Internal Medicine Adolescent Medicine | DX: M79.18 Myalgia, other site (principal) ==

== ENCOUNTER 2025-04-01 13:58 | Outpatient (POV) | payer MEDICARE, SELFPAY ==
[2025-04-01 14:01] VITALS: BP 137/88; PULSE 80; RESP 18; O2SAT 99; BMI 46.8
--- NOTE | 2025-04-01 14:13 | A.OFFVIS_ITS ---
HPI Data of Consult Patient: new to practice Consult date: 04/01/25 Requesting Physician: Sarai Rubin APRN Primary Care Provider: Fab Quinones MD Reason for consult: Low back pain, bilateral hip pain, bilateral knee pain History of present illness: Ms. Ocasio is a 64 year old female who presents today as a new patient. She is a referral from Dr. Quinones's office. Today she rates her pain a 6 out of 10. Patient states she has chronic pain throughout her low back, bilateral hips and bilateral knees. Patient does state this has been going on for years and progressively worsened. She does state the right knee is worse than the left. She does state that the pain varies depending on what type of activity she is doing. She states that walking can be more aggravating same way with going from a seated to standing position or laying down to getting up position. Patient feels like a lot of it is more related to her hips than the low back. Patient is starting physical therapy coming up soon and is not sure to what extent although will be working on. Patient denies any prior surgery or injection history. Patient has been to the chiropractor on multiple occasions but not really noticed much improvement. Patient has tried oral medications such as Tylenol and ibuprofen along with heat and ice and topicals. Patient states that heat seems to aggravate her knee pain but does make her hip better. Patient does state occasionally she feels like her right knee is going to give out. Patient does also make mention that she has had surgery on both her heels in the past and still continues to have pain in this area. Patient is unsure if that is causing additional issues. Her Aamir has been reviewed and is appropriate. Pain at rest (0-10 scale): 6 Has patient had previous pain injection?: No Conservative treatment options previously tried: Home exercise plan (Longer than 12 weeks), Physical Therapy (Starting soon) and Chiropractor (No additional improvement) cc:: CC: Sarai Rubin APRN [facility] Disclaimer: The information contained in this section may have been updated after the patient was seen, as this information can be updated by other users. Medical History History of abscess of skin and subcutaneous tissue spider bite Hypothyroid Allergies Hypertension Hyperlipidemia Surgical History Hx of hemorrhoidectomy Hx of foot surgery bilateral heel sx History of hysterectomy Family History Other Family history of COPD (chronic obstructive pulmonary disease) Family history of cancer Family history of hypertension Family history of myocardial infarction Family history of stroke Social History Smoking Status: Former smoker tobacco type: cigarettes packs per day: 1 how long ago did patient quit smokin years alcohol intake: current alcohol intake frequency: other substance use type: denies use current occupational status: retired Travel in the last 8 weeks?: None household members: none housing: house lives independently: Yes marital status: education level: high school 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 current occupational exposures/hazards: No caffeine: Yes special jr needs: No agree to transfusion: No do you feel safe at home: Yes victim of physical abuse: No victim of emotional abuse: No victim of sexual abuse: No would you like helpful sources: No Review of Systems Review of Systems Review of systems:: pertinent systems reviewed and negative unless documented below Review of systems (narrative): Review of Systems: General: No recent weight changes, no fever, no sleep disturbances Respiratory: No cough, no shortness of air, no recurring pulmonary infections Cardiovascular/peripheral vascular: No chest pain, no palpitations, no edema, no shortness of breath Gastrointestinal: No new onset incontinence, normal bowel movements reported Genitourinary: No new onset incontinence Musculoskeletal: Low back pain, bilateral hip pain, bilateral knee pain Psychiatric: [Normal mood/affect] Neurological: [Denies weakness in extremities], [denies balance issues] Meds Home Medications and Allergies Home Medications ?Medication ?Instructions ?Recorded ?Confirmed ?Type albuterol sulfate 90 mcg/actuation 2 puff inhalation Q 6H COPD 01/06/18 04/01/25 History aerosol inhaler (ProAir HFA) aspirin 81 mg tablet,delayed 81 mg PO ONCE Heartburn 0 01/06/18 04/01/25 History release (Aspir-) atorvastatin 40 mg tablet 40 mg PO ONCE Cholesterol 04/01/25 History calcium carbonate (Calcium 600) 600 mg PO ONCE Supplem ent 01/06/18 04/01/25 History tiotropium bromide 18 mcg capsule 1 cap inhalation ONC E COPD 01/06/18 04/01/25 History with inhalation device (Spiriva with HandiHaler) cetirizine 10 mg capsule (All Day 10 mg PO ONCE ALLERG IES 02/25/18 04/01/25 History Allergy (cetirizine)) bupropion HCl 150 mg 24 hr tablet, 150 mg PO DAILY Yomaira n 30 days #30 06/10/18 04/01/25 History extended release tabs levothyroxine 150 mcg tablet 150 mcg PO DAILY THYROID 90 days 09/19/18 04/01/25 History #90 tabs amlodipine 10 mg tablet 10 mg PO DAILY bp #90 tabs 1 10/11/18 04/01/25 History hydrochlorothiazide 25 mg tablet 25 mg PO DAILY bp #90 tabs 08/11/19 04/01/25 History mnrnihyc-xuw-cymp-FA-Ca carb-vit K 1 tab PO QHS Supple ment 08/11/19 04/01/25 History 18 mg iron-400 mcg-500 mg tablet (Women's Multivitamin) diclofenac sodium 1 % topical gel 4 g topical QID PRN pain #30 grams 01/15/20 04/01/25 Rx (Voltaren) ibuprofen 800 mg tablet 800 mg PO BID pain, mild #60 tabs 01/15/20 04/01/25 Rx bisoprolol fumarate 10 mg tablet 10 mg PO DAILY htn 04/01/25 History ciclopirox 8 % topical solution 1 applic topical QHS P RN toenail 03/22/20 04/01/25 History fungus furosemide 20 mg tablet 20 mg PO NEEDED PRN fluid 03/22/20 04/01/25 History albuterol sulfate 90 mcg/actuation 1 puff inhalation Q ID allergies 09/07/22 04/01/25 History aerosol inhaler (ProAir HFA) lisinopril 10 mg tablet 10 mg PO DAILY htn 09/07/22 04/01/25 History sodium,potassium,mag sulfates 17.5 1 ml PO ONCE prep 1 11/08/21 04/01/25 History gram-3.13 gram-1.6 gram oral soln (Suprep Bowel Prep Kit) New Prescriptions to Start Prescriptions: Allergies Allergy/AdvReac Type Severity Reaction Status Date / Time latex (LATEX) Allergy Mild I-RASH Verified 01/22/24 11:18 adhesive Allergy Verified 01/22/24 11:18 Objective Narrative: Physical Exam: General: Alert and oriented x3, no acute distress, pleasant and cooperative Lungs: Respirations even and unlabored, symmetrical chest expansion Eyes: PERRL Musculoskeletal: Flexion and extension of lumbar [spine] somewhat guarded secondary to pain, [antalgic gait noted] point tenderness bilateral bursa's Neurological: Speech clear, no gross sensory deficit Additional findings Additional findings: FINDINGS: Sagittal images show normal vertebral height. There is minimal retrolisthesis of L2 on L3 measuring 2 mm. Alignment is otherwise normal. Marrow signal pattern is unremarkable. Incidental note is made of a lipoma within the deep right gluteal musculature near the iliac wing measuring up to 2.8 cm. T12-L1: Unremarkable. L1-2: Unremarkable L2-3: Mild annular disc bulge with mild bilateral neuroforaminal narrowing. L3-4: Minimal annular disc bulge with mild bilateral neuroforaminal narrowing. L4-5: Mild annular disc bulge with mild facet arthropathy and mild bilateral neuroforaminal narrowing. L5-S1: Mild annular disc bulge with mild facet arthropathy and mild bilateral neuroforaminal narrowing. IMPRESSION: Diffuse degenerative changes, most pronounced at L2-3. Reviewed, Interpreted and Dictated by Harper Javed MD Transcribed by Adrianne Tipton Authenticated and [facility] [place] [place] Procedure(s): XR knee LT 3V Accession Number(s): [id number] cc: Fab Quinones MD; Jace Gonzalez MD~ FINAL REPORT CLINICAL HISTORY: SWELLING OF LEFT KNEE AND PAIN COMPARISON: None FINDINGS: Three views of the left knee reveal no evidence of fracture or dislocation. There is mild lateral subluxation of the tibia in relationship to the distal femur. Moderate degenerative change is present as well as moderate medial compartment narrowing. There is no evidence of joint effusion. No localized soft tissue abnormality is seen. IMPRESSION: Moderate degenerative change, with moderate narrowing of the medial compartment and mild lateral subluxation of the tibia as described above. Reviewed, Interpreted and Dictated by Jace Gonzalez III, MD Transcribed by Delicia Barrett Authenticated and [facility] [place] Assessment and Plan *Assessment and plan (1) Degenerative disc disease: Status: Acute Category: Medical (2) Bilateral hip pain: Status: Acute Category: Medical Code(s): M25.551 - Pain in right hip; M25.552 - Pain in left hip (3) Bilateral knee pain: Status: Acute Category: Medical Code(s): M25.561 - Pain in right knee; M25.562 - Pain in left knee (4) Trochanteric bursitis of both hips: Status: Acute Category: Medical Code(s): M70.61 - Trochanteric bursitis, right hip; M70.62 - Trochanteric bursitis, left hip Plan Patient is experiencing pain in multiple locations. Patient did have mild tenderness along her bilateral SI joints and more point tenderness along her bilateral bursa's. Patient is leery about injections currently. I did discuss with her that we will wait and see how she does with physical therapy. I will order the patient a compounded cream and have her follow-up in 1 month. Patient agrees with this plan of care. We did discuss in future she may benefit from bursa injections as that was more painful during today's exam. We will follow- up with this at a later date. Patient has been instructed to contact the clinic with any concerns before the next appointment. Dr. Peacock has reviewed this note and agrees with this plan of care. This note was dictated using voice recognition software and make contain errors or omissions. All injections are used with Lidocaine, Bupivacaine and dexamethasone. Occasionally urine drug screen is needed to verify patient's compliance with our office pain contract. This is ordered based off specific treatments related to chronic pain with the potential to abuse certain medications.
== END 2025-04-01 23:59 | disposition home or self-care (01) ==
LOC: SC.PAIN 14:00
PROVIDERS: PCP Internal Medicine Adolescent Medicine; Visit Provider Nurse Practitioner Family
DX: M51.360 Other intervertebral disc degeneration, lumbar region with discogenic back pain only (principal); M70.61 Trochanteric bursitis, right hip; M70.62 Trochanteric bursitis, left hip
CPT/HCPCS: 99202; G0463

== ENCOUNTER 2025-04-23 11:00 | Outpatient (RCR) | payer MEDICARE, SELFPAY ==
--- NOTE | 2025-03-24 12:32 | HMH.PTOPEV ---
PT Outpatient Evaluation Rehab PT Outpatient Evaluation Start: 03/24/25 10:38 Freq: Status: Active Protocol: Document 03/24/25 10:39 MENA (Rec: 03/24/25 12:32 MENA [id number]) E-signed By Sarai Kat, PT Outpatient Therapy Subjective History Subjective History Pt is a 64 y/o female who reports chronic central low back pain with gradual worsening overtime. Pt denies known trauma or injury. Pt had a lumbar spine MRI on with impression of Diffuse degenerative changes, most pronounced at L2-3. Pt denies having imaging of her hips. Pt reports symptoms of constant central low back pain with intermittent pain into the right leg to the top of the ankle. Pt also reports her left thigh quintero at times and both knees hurt from arthritis. Pt denies numbness/tingling, b/b dysfunction or muscle spasms. Pt reports pain is aggravated by prolonged sitting, standing, walking, performing sit to stand, stair climbing, housework, and rolling over. Pt reports sleep is impaired due to pain. Medical History: Hx of B ankle surgeries in 2019, Hypertension, Hyperlipidemia, Depression, COPD, Asthma, Osteopenia, Sleep Apnea Negative: slump test New diagnosis of No cancer in past 12 months? Chief Complaint Pain Symptom Type Burning Symptoms Relieved By Rest/Positioning,Heat Symptoms Aggravated Sitting,Standing,Walking,Lifting By Current Functional Lifting,Housework,Sleeping,Standing,Sitting,Squatting, Limitations Walking,Stairs Symptom Description Constant but Variable Level of pain today 8 (0-10) Pain scale - at its 3 best (0-10) Pain scale - at its 10 worst (0-10) Lumbopelvic Eval Posture Lumbar Spine Posture Increased Lordosis Standing Position Assistive device Assistive Devices None / NA Gait Observation General Gait Pattern Antalgic Gait,Wide Based Gait Observation Palapation tenderness bilateral lumbar spinal Yes tenderness paraspinal Yes: bilateral lumbar PS tenderness buttock tenderness Yes: glute med, min and piriformis Lumbar/Sacral Tenderness Palpation Findings Lumbar/Sacral 3/4 TTP Palpation Overall Comment Accessory Movement L2 bilateral L4 bilateral L5 bilateral Range of Motion Lumbar Spine Active 100 Flexion Range of Motion (degrees) Lumbar Spine Active 10 Extension Range of Motion (degrees) Left Lumbar Spine 5 Lateral Flexion Active Range of Motion (degrees) Right Lumbar Spine 5 Lateral Flexion Active Range of Motion (degrees) Manual Muscle Test Bilateral Knee Extension 4 Good Strength Grade Knee Flexion 4 Good Strength Grade Hip Flexion Strength 3 Fair Grade Hip Abduction 3 Fair Strength Grade Hip Adduction 3 Fair Strength Grade Hip Extension 3 Fair Strength Grade Ankle Dorsiflexion 5 Normal Strength Grade DTR Rt Patellar 1+ Lt Patellar 1+ Altered Sensation Bilateral Comment equal and intact to light touch sensation bilaterally Special Tests Hip Gomez (ADELE) Positive Left,Positive Right Test Unilateral Straight Positive Left,Positive Right Leg Raise (Lasegue) Test Hip/Knee Eval ROM left Hip Flexion w/Knee 65 Flexed Active Range of Motion (degrees) Knee Extension 0 Active Range of Motion (degrees) Knee Flexion Active 110 Range of Motion ( degrees) right Hip Flexion w/Knee 60 Flexed Active Range of Motion (degrees) Knee Extension 0 Active Range of Motion (degrees) Knee Flexion Active 110 Range of Motion ( degrees) Oswestry Index Section 1 Pain Intensity The pain comes and goes and is severe Section 2 Personal Care ( my way of washing or dressing even though it causes Washing,Dresing) some pain Section 3 Lifting Pain prevents me from lifting weights off the floor Section 4 Walking I cannot walk at all without increasing pain Section 5 Sitting Pain prevents me from sitting for more than 1/2 hour Section 6 Standing I cannot stand more than 10 minutes without increasing pain Section 7 Sleeping Because of my pain, my normal night's sleep is less than 6 hours sleep Section 8 Social Life Pain has restricted my social life and I do not go out often Section 9 Traveling Pain restricts me to short necessary journeys under 30 minutes Section 10 Changing Degreee of My pain is gradually getting worse Pain Score and Risk Level Oswestry Sc 32 Oswestry Risk Level Severe Disability Outpatient Therapy Assessment Impairments Problems/ Palpation Tenderness,Impaired Range of Motion,Impaired Impairmments Strength,Impaired Walking,Impaired Standing,Impaired Sitting,Impaired Lifting,Impaired Household Care, Impaired Stair Climbing,Impaired Incline Stepping, Impaired Stepping on Uneven Surface,Impaired Squatting, Subjective C/O Pain,Impaired Self Care/Self Management Prognosis Rehab Potential Good Clinical Impression Consistent with Yes Diagnosis Additional details: also low back pain M54.5 Short Term Goals Number of Weeks 3 Increase Strength Yes: Improve hip flexion/extension MMT to 3+-4-/5 to assist with function Decrease Subjective Yes: Improve pain at worst to 8/10 to improve overall C/O Pain QOL Improve Self Care/ Yes Self Management Patient to be Ind w/ Yes HEP Director Of Sustainability Programs Goals Number of Weeks 6 Decreased Palpation Yes: 0-1/4 TTP of gluteal mm & lumbar PS Tenderness Increase Range of Yes: Improve lumbar AROM ext & LF to 10-15 Motion Increase Strength Yes: Improve BLE MMT to 4-4+/5 grossly to assist with function Improve Ability For Yes: with pain 6/10 or less to assist with ADLs Household Care Improve Oswestry Yes: Improve score to 27 or less to improve overall QOL Score Decrease Subjective Yes: Improve pain at worst to 6/10 to improve overall C/O Pain QOL Outpatient Therapy Plan of Care Treatment Plan May Include Therapeutic Exercise Yes Including Home Exercise Program Manual Therapy Yes Techniques Neuromuscular Re- Yes education Therapeutic Yes Activities to Return to Previous Functional/Work Level Gait Training Yes ADL/Self Care Yes Education Mechanical Traction Yes Dry Needling Yes Thermal Modalities Yes Electrical Yes Stimulation Ultrasound/ Yes Phonophoresis Iontophoresis Yes Massage Yes Eval/Re-Eval Yes Aquatic Therapy Yes Frequency Times per week 2 Duration Number of Weeks 4-6 Addendums This patient is a No candidate for social or vocational rehab ? Patient/Guardian Yes verbally acknowledges understanding of treatment program and consents to further treatment? Patient/Guardian Yes verbally acknowledges understanding of diagnosis, prognosis and goals for treatment? Eval Complexity PT Charges 25809 - Moderate Complexity Shoulder/Elbow Eval Shoulder Objective Measurements Elbow Objective Measurements PHYSICIAN CERTIFICATION: I certify the specified therapy services for Prabha Ocasio are required, authorized, and reviewed every 30 days.
--- NOTE | 2025-04-23 12:09 | HMH.RHREAS ---
Rehab Reassessment Rehab OP Re-assessment Start: 03/24/25 10:38 Freq: Status: Active Protocol: Document 04/23/25 11:17 LIVANGINA (Rec: 04/23/25 12:09 MENA [id number]) E-signed By Sarai Kat, PT Oswestry Index Section 1 Pain Intensity The pain comes and goes and is moderate Section 2 Personal Care ( my way of washing or dressing even though it causes Washing,Dresing) some pain Section 3 Lifting lifting heavy weights off the floor, but I can manage if they are Section 4 Walking I cannot walk more than 1/4 mile without increasing pain Section 5 Sitting I can sit in any chair for as long as I like Section 6 Standing I cannot stand more than 1/2 hour without increasing pain Section 7 Sleeping Because of my pain, my normal night's sleep is less than 6 hours sleep Section 8 Social Life My social life is normal and gives me no extra pain Section 9 Traveling I get some pain when traveling, but none of my usual forms of travel m Section 10 Changing Degreee of My pain is getting better Pain Score and Risk Level Oswestry Sc 16 Oswestry Risk Level Moderate Disability Rehab Re-assessment Subjective Subjective Pt reports she feels 70% improved since starting PT. Pt reports low back pain still comes and goes rated 7/10 at worst on VAS. Pt reports pain continues to be aggravated with prolonged standing, standing after prolonged sitting, and sweeping. Pt states she does feel that she is able to walker longer on even and uneven ground with less pain and sleep better overall. Pt reports compliance with HEP which seems to help. Objective Objective Notes Palpation: 1/4 TTP of S1, 0/4 TTP of gluteal mm Lumbar AROM: flex 100, ext 20, LF 10 BLE MMT: 12/27 grossly Assessment Assessment Notes Pt has attended 6 PT treatment sessions consisting of aerobic exercise, lumbar mobility, LE stretching/ strengthening, core strengthening and HEP with good tolerance. Pt demonstrated improved subjective report of pain, BRENDA score, palpation, lumbar AROM, and BLE strength compared to the initial evaluation. Pt met most PT goals and is appropriate to discharge to independent [facility] at this time. Patient goals met ST/4 LT/6 Goals Not Met p! at worst, p! with household care Revised Goals n/a Plan Plan Discharge to independent [facility] Eval/Re-Eval Yes Time and Billing Re-Eval Time 12 Re-Eval Billing 0 Units Charge for PT No reassessment? Charge for OT No reassessment? PHYSICIAN CERTIFICATION: I certify the specified therapy services for Prabha Ocasio are required, authorized, and reviewed every 30 days.
== END 2025-04-23 23:59 | disposition home or self-care (01) ==
LOC: PT 11:00
PROVIDERS: Visit Provider Internal Medicine Adolescent Medicine
DX: M79.18 Myalgia, other site (principal); M54.50 Low back pain, unspecified; G89.29 Other chronic pain
CPT/HCPCS: 97110; 97162

== ENCOUNTER 2025-05-04 13:35 | Outpatient (POV) | payer MEDICARE, SELFPAY ==
[2025-05-04 13:50] VITALS: BP 139/72; PULSE 66; RESP 16; O2SAT 96; BMI 46.6
--- NOTE | 2025-05-04 14:08 | A.OFFVIS_ITS ---
[facility] Disclaimer: The information contained in this section may have been updated after the patient was seen, as this information can be updated by other users. Medical History History of abscess of skin and subcutaneous tissue spider bite Hypothyroid Allergies Hypertension Hyperlipidemia Surgical History Hx of hemorrhoidectomy Hx of foot surgery bilateral heel sx History of hysterectomy Family History Other Family history of COPD (chronic obstructive pulmonary disease) Family history of cancer Family history of hypertension Family history of myocardial infarction Family history of stroke Social History (Updated 04/01/25 @ 14:17 by Cristina Christensen RN) Smoking Status: Former smoker tobacco type: cigarettes packs per day: 1 how long ago did patient quit smokin years alcohol intake: current alcohol intake frequency: other substance use type: denies use current occupational status: other Travel in the last 8 weeks?: None household members: none housing: house lives independently: Yes marital status: education level: high school current occupation: [employer] current occupational exposures/hazards: No caffeine: Yes special jr needs: No agree to transfusion: No do you feel safe at home: Yes victim of physical abuse: No victim of emotional abuse: No victim of sexual abuse: No would you like helpful sources: No PM Subjective & Objective Subjective Subjective:: Patient is a very pleasant 64-year-old female who presents today for 1 month follow-up. She does state that the compound cream we ordered and physical therapy has really seem to make a lot of difference in her low back pain. She rates her pain today 2 out of 10 and denies any new falls or injuries. She s tates that she does still have issues with the low back and knees but it is very manageable. Her Aamir has been reviewed and is appropriate. Review of Systems: General: No recent weight changes, no fever, no sleep disturbances Respiratory: No cough, no shortness of air, no recurring pulmonary infections Cardiovascular/peripheral vascular: No chest pain, no palpitations, no edema, no shortness of breath Gastrointestinal: No new onset incontinence, normal bowel movements reported Genitourinary: No new onset incontinence Musculoskeletal: Low back pain, knee pain Psychiatric: [Normal mood/affect] Neurological: [Denies weakness in extremities], [denies balance issues] Pain at rest (0-10 scale): 2 Objective Objective:: Physical Exam: General: Alert and oriented x3, no acute distress, pleasant and cooperative Lungs: Respirations even and unlabored, symmetrical chest expansion Eyes: PERRL Musculoskeletal: Flexion and extension of lumbar [spine] within normal limits Neurological: Speech clear, no gross sensory deficit Has patient had previous pain injection?: No Conservative treatment options previously tried: Home exercise plan Length of treatment: Longer than 12 weeks Meds Home Medications and Allergies Home Medications ?Medication ?Instructions ?Recorded ?Confirmed ?Type albuterol sulfate 90 mcg/actuation 2 puff inhalation Q 6H COPD 01/06/18 05/04/25 History aerosol inhaler (ProAir HFA) aspirin 81 mg tablet,delayed 81 mg PO ONCE Heartburn 0 01/06/18 05/04/25 History release (Aspir-) atorvastatin 40 mg tablet 40 mg PO ONCE Cholesterol 05/04/25 History calcium carbonate (Calcium 600) 600 mg PO ONCE Supplem ent 01/06/18 05/04/25 History tiotropium bromide 18 mcg capsule 1 cap inhalation ONC E COPD 01/06/18 05/04/25 History with inhalation device (Spiriva with HandiHaler) cetirizine 10 mg capsule (All Day 10 mg PO ONCE ALLERG IES 02/25/18 05/04/25 History Allergy (cetirizine)) bupropion HCl 150 mg 24 hr tablet, 150 mg PO DAILY Yomaira n 30 days #30 06/10/18 05/04/25 History extended release tabs levothyroxine 150 mcg tablet 150 mcg PO DAILY THYROID 90 days 09/19/18 05/04/25 History #90 tabs amlodipine 10 mg tablet 10 mg PO DAILY bp #90 tabs 1 10/11/18 05/04/25 History hydrochlorothiazide 25 mg tablet 25 mg PO DAILY bp #90 tabs 08/11/19 05/04/25 History [id number] carb-vit K 1 tab PO QHS Supple ment 08/11/19 05/04/25 History 18 mg iron-400 mcg-500 mg tablet (Women's Multivitamin) diclofenac sodium 1 % topical gel 4 g topical QID PRN pain #30 grams 01/15/20 05/04/25 Rx (Voltaren) ibuprofen 800 mg tablet 800 mg PO BID pain, mild #60 tabs 01/15/20 05/04/25 Rx bisoprolol fumarate 10 mg tablet 10 mg PO DAILY htn 05/04/25 History ciclopirox 8 % topical solution 1 applic topical QHS P RN toenail 03/22/20 05/04/25 History fungus furosemide 20 mg tablet 20 mg PO NEEDED PRN fluid 03/22/20 05/04/25 History albuterol sulfate 90 mcg/actuation 1 puff inhalation Q ID allergies 09/07/22 05/04/25 History aerosol inhaler (ProAir HFA) lisinopril 10 mg tablet 10 mg PO DAILY htn 09/07/22 05/04/25 History sodium,potassium,mag sulfates 17.5 1 ml PO ONCE prep 1 11/08/21 05/04/25 History gram-3.13 gram-1.6 gram oral soln (Suprep Bowel Prep Kit) New Prescriptions to Start Prescriptions: Allergies Allergy/AdvReac Type Severity Reaction Status Date / Time latex (LATEX) Allergy Mild I-RASH Verified 01/22/24 11:18 adhesive Allergy Verified 01/22/24 11:18 Assessment and Plan *Assessment and plan (1) Bilateral knee pain: Status: Acute Category: Medical Code(s): M25.561 - Pain in right knee; M25.562 - Pain in left knee (2) Degenerative disc disease: Status: Acute Category: Medical Plan Patient has had significant improvement with the compounded cream and physical therapy. Patient is still doing at home physician guided exercises that do feel like is helping additionally. We will follow-up with the patient in 6 weeks for reevaluation of symptoms and plan of care. Patient has been instructed to contact the clinic with any concerns before the next appointment. Dr. Peacock has reviewed this note and agrees with this plan of care. This note was dictated using voice recognition software and make contain errors or omissions. All injections are used with Lidocaine, Bupivacaine and dexamethasone. Occasionally urine drug screen is needed to verify patient's compliance with our office pain contract. This is ordered based off specific treatments related to chronic pain with the potential to abuse certain medications.
== END 2025-05-04 23:59 | disposition home or self-care (01) ==
LOC: SC.PAIN 13:36
PROVIDERS: PCP Internal Medicine Adolescent Medicine; Visit Provider Nurse Practitioner Family
DX: M25.561 Pain in right knee (principal); M25.562 Pain in left knee
CPT/HCPCS: 99212; G0463